=== PATIENT | male | born 1990 | race Two or more races ===

== ENCOUNTER 2022-02-04 20:48 | Emergency (ER) | payer SELFPAY ==
[~2022-02-04] VITALS: Ht 175.3 cm; Wt 108.9 kg
[2022-02-04 20:54] VITALS: BP 131/90
== END 2022-02-05 02:58 | disposition left against medical advice (07) ==
LOC: ER 21:05
DX: M79.605 Pain in left leg (principal); Z53.21 Procedure and treatment not carried out due to patient leaving prior to being seen by health care provider

== ENCOUNTER 2022-02-09 15:43 | Emergency (ER) | payer MEDICAID ==
[~2022-02-09] VITALS: Ht 175.3 cm; Wt 111.1 kg
[2022-02-09 15:44] VITALS: BP 118/75
[2022-02-09] MEDS ORDERED: KETOROLAC TROMETH 60MG/2ML VIAL IM ONE (16:45)
[2022-02-09] MEDS ORDERED: IBUP800T27 PO (16:47)
== END 2022-02-09 16:51 | disposition home or self-care (01) ==
LOC: ER 15:43
DX: M79.662 Pain in left lower leg (principal); M54.42 Lumbago with sciatica, left side; Z88.0 Allergy status to penicillin
CPT/HCPCS: 93971; 96372; 99284; J1885